=== PATIENT | male | born 1985 | race Caucasian/White ===

== ENCOUNTER 2018-08-15 19:44 | Emergency (ER) | payer MEDICAID, OTHER ==
[~2018-08-15] VITALS: Ht 188 cm; Wt 90.0 kg
[~2018-08-15 19:44] MED LIST: NAPR-56 PO; NO HOME MEDS
[2018-08-15] MEDS ORDERED: ketorolac trometh inj. 60 MG/2 ML VIAL IM STA (22:12)
[2018-08-15 22:32] VITALS: BP 128/69
== END 2018-08-15 22:37 | disposition home or self-care (01) ==
LOC: ER 19:44
DX: M25.562 Pain in left knee (principal); G89.29 Other chronic pain; Z98.890 Other specified postprocedural states; Z79.899 Other long term (current) drug therapy; Z56.0 Unemployment, unspecified; W18.39XA Other fall on same level, initial encounter; Y93.89 Activity, other specified; Y92.89 Other specified places as the place of occurrence of the external cause; Y99.8 Other external cause status
CPT/HCPCS: 29505; 73564; 96372; 99284; J1885

== ENCOUNTER → 2024-01-05 | Outpatient (CLI) | payer MEDICAID, OTHER | END | disposition home or self-care (01) | LOC: MRI 08:39 | PROVIDERS: ATTEND Student in an Organized Health Care Education/Training Program | DX: M51.16 Intervertebral disc disorders with radiculopathy, lumbar region (principal); M47.27 Other spondylosis with radiculopathy, lumbosacral region; M48.07 Spinal stenosis, lumbosacral region | CPT/HCPCS: 72148 ==